=== PATIENT | male | born 1985 | race Caucasian/White ===

== ENCOUNTER 2017-02-14 04:20 | Emergency (ER) | payer OTHER ==
[~2017-02-14] VITALS: Ht 188 cm; Wt 95.2 kg
[2017-02-14 04:48] VITALS: BP 140/77
== END 2017-02-14 04:48 | disposition other institution (70) ==
LOC: ED 04:20
DX: Z02.89 Encounter for other administrative examinations (principal); M54.2 Cervicalgia